=== PATIENT | male | born 1935 | race Caucasian/White ===

== ENCOUNTER → 2018-10-02 | Outpatient (CLI) | payer BC, MEDICARE, OTHER ==
--- NOTE | 2018-10-02 14:56 | CARD ---
MR#: [id number] Date of Study: 10/02/2018 Ordering Physician: YE RENTERIA, Referring Physician: YE RENTERIA Tech: Daisha Aguilar RDCS APPROVED REPORT EXAM: Two-dimensional and M-mode echocardiogram with Doppler and color Doppler. Other Information Quality : GoodHR: 64bpm Rhythm : NSR INDICATION Arrhythmia 2D DIMENSIONS RVDd3.5 (2.9-3.5cm)Left Atrium(2D)4.8 (1.6-4.0cm) IVSd1.4 (0.7-1.1cm)Aortic Root(2D)3.1 (2.0-3.7cm) LVDd4.2 (3.9-5.9cm)LVOT Diameter2.1 (1.8-2.4cm) PWd1.2 (0.7-1.1cm)LVDs3.0 (2.5-4.0cm) FS (%) 28.6 %SV43.0 ml LVEF(%)55.6 (>50%) M-Mode DIMENSIONS Left Atrium(MM)4.61 (2.5-4.0cm)Aortic Root3.58 (2.2-3.7cm) Aortic Valve AoV Peak Jeffrey.258.9cm/sAoV VTI60.8cm AO Peak GR.26.8mmHgLVOT Peak Jeffrey.97.9cm/s AO Mean GR.17mmHgAVA (VMAX)1.28cm2 DANIELLA (VTI)1.30cm2 Mitral Valve MV E Rdniongx36.6cm/sMV DECEL [id number] MV A Eanhpoyg785.4cm/sE/A Ratio0.6 Pulmonary Valve PV Peak Yvlkisjc253.8cm/s Tricuspid Valve TR P. Gfyhbjaw899vj/sRAP AQVVRJJG1qlOr TR Peak Gr.29kiUaTEMQ93bfYw LEFT VENTRICLE The left ventricle is normal size. There is mild concentric left ventricular hypertrophy. The left ve ntricular systolic function is normal and the ejection fraction is within normal range. The Ejection Fraction is 55-60%. There is normal LV segmental wall motion. Transmitral Doppler flow pattern is Gra de I-abnormal relaxation pattern. RIGHT VENTRICLE The right ventricle is normal size. There is normal right ventricular wall thickness. The right ventr icular systolic function is normal. ATRIA The left atrium is mildly dilated. The right atrium size is normal. The interatrial septum is intact with no evidence for an atrial septal defect or patent foramen ovale as noted on 2-D or Doppler imagi ng. AORTIC VALVE The aortic valve is mildly to moderately calcified. Doppler and Color Flow revealed no significant ao rtic regurgitation. There is mild valvular aortic stenosis. Calculated aortic valve maximum pressure gradient of 27 mmHg and mean pressure gradient of 17 mmHg. MITRAL VALVE The mitral valve is thickened but opens well. There is no evidence of mitral valve prolapse. There is no mitral valve stenosis. Doppler and Color-flow revealed mild mitral regurgitation. TRICUSPID VALVE The tricuspid valve is normal in structure and function. Doppler and Color Flow revealed trace tricus pid regurgitation. The PA pressure was estimated at 26 mmHg. There is no tricuspid valve prolapse or vegetation. There is no tricuspid valve stenosis. PULMONIC VALVE The pulmonary valve is normal in structure and function. Doppler and Color Flow revealed trace to mil d pulmonic valvular regurgitation. There is no pulmonic valvular stenosis. GREAT VESSELS The aortic root is normal in size. The ascending aorta is normal in size. The IVC is normal in size a nd collapses >50% with inspiration. PERICARDIAL EFFUSION There is no evidence of significant pericardial effusion. Critical Notification Critical Value: No <Conclusion> The left ventricle is normal size. The left ventricular systolic function is normal and the ejection fraction is within normal range. The Ejection Fraction is 55-60%. There is mild concentric left ventricular hypertrophy. Doppler and Color Flow revealed no significant aortic regurgitation. There is mild valvular aortic stenosis. Calculated aortic valve maximum pressure gradient of 27 mmHg and mean pressure gradient of 17 mmHg. Doppler and Color-flow revealed mild mitral regurgitation. Doppler and Color Flow revealed trace tricuspid regurgitation. The PA pressure was estimated at 26 mmHg. Signed by : Markus Hsieh MD Electronically Approved : 10/02/2018 14:56:40
== END | disposition home or self-care (01) ==
LOC: ECHO 13:50
PROVIDERS: ATTEND Internal Medicine Cardiovascular Disease
DX: I08.8 Other rheumatic multiple valve diseases (principal); R00.1 Bradycardia, unspecified
CPT/HCPCS: 93306

== ENCOUNTER → 2019-12-12 | Outpatient (CLI) | payer BC ==
[~2019-12-12] VITALS: Ht 172.7 cm; Wt 79.4 kg
[~2019-12-12] MED LIST: LISI-338 PO; METF500T16 PO; REGADENOSON 0.4 MG/5 ML DISP.SYRIN. IV ONE
--- NOTE | 2019-12-12 15:50 | CARD ---
MR#: [id number] Date of Study: 12/12/2019 Ordering Physician: YE RENTERIA, Referring Physician: YE RENTERIA Tech: Yolie Ruiz RDCS APPROVED REPORT EXAM: Two-dimensional and M-mode echocardiogram with Doppler and color Doppler. Other Information Quality : Good INDICATION Dyspnea on Exertion 2D DIMENSIONS RVDd3.2 (2.9-3.5cm)Left Atrium(2D)4.1 (1.6-4.0cm) IVSd1.2 (0.7-1.1cm)Aortic Root(2D)2.7 (2.0-3.7cm) LVDd4.5 (3.9-5.9cm)LVOT Diameter2.0 (1.8-2.4cm) PWd1.0 (0.7-1.1cm)LVDs3.5 (2.5-4.0cm) FS (%) 22.3 %SV42.5 ml Aortic Valve AoV Peak Jefrfey.307.5cm/sAoV VTI69.3cm AO Peak GR.37.8mmHgLVOT Peak Jeffrey.120.1cm/s AO Mean GR.19mmHgAVA (VMAX)1.28cm2 DANIELLA (VTI)1.40cm2 Mitral Valve MV E Wzrrxhve96.0cm/sMV DECEL MMNB495ce MV A Arqyadvp92.0cm/sE/A Ratio0.7 Tricuspid Valve TR P. Bqcjqgeo967bs/sRAP EODSROKT8bfUl TR Peak Gr.70caVpRSWA51uoLl Pulmonary Vein S1 Ovtucjar97.6cm/sD2 Plblsncv04.2cm/s LEFT VENTRICLE The left ventricle is normal size. There is mild asymmetric septal hypertrophy. Left ventricle systol ic function is low normal. The Ejection Fraction is 50-55%. There is normal LV segmental wall motion. Transmitral Doppler flow pattern is Grade I-abnormal relaxation pattern. RIGHT VENTRICLE The right ventricle is normal size. The right ventricular systolic function is normal. ATRIA The left atrium is mildly dilated. The right atrium size is normal. The interatrial septum is intact with no evidence for an atrial septal defect or patent foramen ovale as noted on 2-D or Doppler imagi ng. AORTIC VALVE The aortic valve is calcified and displays decreased opening. Doppler and Color Flow revealed no sign ificant aortic regurgitation. Calculated aortic valve area is 1.4 cm2 with maximum pressure gradient of 28 mmHg and mean pressure gradient of 18 mmHg. Doppler and color-flow analysis revealed mild aorti c stenosis. MITRAL VALVE The mitral valve is calcified but opens well. There is no evidence of mitral valve prolapse. There is no mitral valve stenosis. Doppler and Color-flow revealed mild to moderate mitral regurgitation. TRICUSPID VALVE The tricuspid valve is normal in structure and function. Doppler and Color Flow revealed trace tricus pid regurgitation. The PA pressure was estimated at 25 mmHg. There is no tricuspid valve stenosis. PULMONIC VALVE The pulmonary valve is normal in structure and function. Doppler and Color Flow revealed mild pulmoni c valvular regurgitation. There is no pulmonic valvular stenosis. GREAT VESSELS The aortic root is normal in size. The ascending aorta is normal in size. The IVC is normal in size a nd collapses >50% with inspiration. PERICARDIAL EFFUSION There is no evidence of significant pericardial effusion. Critical Notification Critical Value: No <Conclusion> The left ventricle is normal size. Left ventricle systolic function is low normal. The Ejection Fraction is 50-55%. Doppler and Color Flow revealed no significant aortic regurgitation. Calculated aortic valve area is 1.4 cm2 with maximum pressure gradient of 28 mmHg and mean pressure g radient of 18 mmHg. Doppler and color-flow analysis revealed mild aortic stenosis. Doppler and Color-flow revealed mild to moderate mitral regurgitation. Doppler and Color Flow revealed trace tricuspid regurgitation. The PA pressure was estimated at 25 mmHg. Signed by : Markus Hsieh MD Electronically Approved : 12/12/2019 15:50:22
--- NOTE | 2019-12-12 16:47 | RAD ---
MR#: [id number] Date of Study: 12/12/2019 Ordering Physician: YE RENTERIA, Referring Physician: ANNAMARIA GÓMEZ Tech: SHARAN Miles ARRT (R) (N) APPROVED REPORT Test Type: Pharmacological Stress Nurse/Tech: Jeff Lockwood RN Test Indications: LOVE Cardiac History: HTN, See EMR Medications: See EMR Medical History: DM, See EMR Resting ECG: SR Resting Heart Rate: 59 bpm Resting Blood Pressure: 135/86mmHg Pretest Chest Pain: No chest pain Nurse/Tech Notes Lungs CTA, Heart tones regular Consent: The procedure was explained to the patient in lay terms. Informed consent was witnessed. Senthil eout was entered into [employer]. History and Stress Test performed by RT Cher (R) (N) Pharm. Details Pharmacologic stress testing was performed using 0.4mg per 5ml of regadenoson given intravenously ove r 7-10 seconds. Stress Symptoms No chest pain or symptoms. POST EXERCISE Reason for Termination: Infusion complete Max HR: 91 bpm Max Blood Pressure: 148/72mmHg Blood Pressure response to exercise: Normal blood pressure response during stress. Heart Rate response to exercise: WNL Chest Pain: No. Arrhythmia: No. INTERPRETATION Stress EKG Conclusion: The resting EKG showed a sinus rhythm, nonspecific interventricular conduction block and nonspecific ST segment changes. The stress EKG showed no significant changes from baseline. No EKG evidence of stress-induced ischemia. Imaging Protocol IMAGE PROTOCOL: Rest Tc-99m/stress Tc-99m 1 day Rest: Stress: Viability: Radiopharm.Tc99m YwxrqjeftUy90c Sestamibi Jynm97xLg 33mCi Img Date 12/12/2019 12/12/2019 Inj-Img Jray31tux. 60min. Rest Admin Site:IV - Left AntecubitalAdministrator:SHARAN Miles ARRT (R)(N) Stress Admin Site: IV - Left AntecubitalAdministrator: RT Kayley Kwon)(N) STRESS DATA End Diast. Vol.101.0mlAv. Heart Rate63.0bpm End Syst. Vol.30.0mlCO Index BSA0.0L/min Myocardial Gcuf698.0gEject. Mxujhogo92.0% Stress Rates Pk. Fill Rate2.10EDV/secLVtime Pk. Fill 158.34msec Pk. Empty Rate4.05ESV/secLVtime Pk. Wmijv417.16msec 1/3 Pk. Fill1.28EDV/sec Stress Scores Regional WT0.00Summed WT5.00 Regional WM0.00Summed WM2.00 LV Perfusion The rest scans show a small inferior lateral defect. The stress scans show a borderline inferior lateral defect. Nuclear imaging shows a borderline inferior lateral area of possible minimal reversible ischemia. Wall Motion Left ventricular systolic function is normal with no regional wall motion abnormalities and an ejecti on fraction of greater than 70%. LV Perf. Quant 17 Seg. SSS4.00 17 Seg. SRS8.00 17 Seg. SDS0.00 Stress Defect Extent (% LAD)1.30Rest Defect Extent (% LAD)5.60Rev. Defect Extent (% LAD)0.00 Stress Defect Extent (% LCX) 32.50Rest Defect Extent (% LCX)25.00Rev. Defect Extent (% LCX)0.00 Stress Defect Extent (% RCA)2.20Rest Defect Extent (% RCA)5.60Rev. Defect Extent (% RCA)0.00 Stress Defect Extent (% CECI)11.70Rest Defect Extent (% CECI)14.30Rev. Defect Extent (% CECI)0.00 Conclusion 1. No EKG evidence of stress-induced ischemia. 2. Nuclear imaging shows a borderline area in the inferior lateral wall with possible mild reversible ischemia. 3. Normal left ventricular systolic function with an ejection fraction of greater than 70%. 4. Moderate to moderately low risk Lexiscan nuclear stress test. Signed by : Markus Hsieh MD Electronically Approved : 12/12/2019 16:46:53
== END ==
LOC: NM 08:46
PROVIDERS: ATTEND Internal Medicine Cardiovascular Disease
DX: I08.8 Other rheumatic multiple valve diseases (principal); I10 Essential (primary) hypertension
CPT/HCPCS: 78452; 93017; 93306; A9500; J2785

== ENCOUNTER → 2020-12-14 | Outpatient (CLI) | payer BC ==
[~2020-12-14] MED LIST changes: -LISI-338 PO; +LISI5TAB15 PO; -REGADENOSON 0.4 MG/5 ML DISP.SYRIN. IV ONE
--- NOTE | 2020-12-14 18:20 | CARD ---
MR#: [id number] Date of Study: 12/14/2020 Ordering Physician: YE RENTERIA, Referring Physician: Bryce GÓMEZ: Vick Le [facility] APPROVED REPORT EXAM: Two-dimensional and M-mode echocardiogram with Doppler and color Doppler. INDICATION Murmur LEFT VENTRICLE The left ventricle is normal size. There is borderline to mild concentric left ventricular hypertroph y. The left ventricular systolic function is normal and the ejection fraction is within normal range. The ejection fraction of 50 to 55%. There is normal LV segmental wall motion. No left ventricle thro mbus noted on this study. There is no ventricular septal defect visualized. There is no left ventricu lar aneurysm. There is no mass noted in the left ventricle. RIGHT VENTRICLE The right ventricle is normal size. There is normal right ventricular wall thickness. The right ventr icular systolic function is normal. ATRIA The left atrium is mild to moderately dilated. The right atrium size is normal. The interatrial septu m is intact with no evidence for an atrial septal defect or patent foramen ovale as noted on 2-D or D oppler imaging. AORTIC VALVE The aortic valve is calcified and displays decreased opening. Doppler and Color Flow revealed trace a ortic regurgitation. There is mild valvular aortic stenosis. Calculated aortic valve area is 1.1 cm2 with maximum pressure gradient of 33 mmHg and mean pressure gradient of 20 mmHg. There is no aortic v alvular vegetation. MITRAL VALVE The mitral valve is normal in structure and function. There is no evidence of mitral valve prolapse. There is no mitral valve stenosis. Doppler and Color-flow revealed trace to mild mitral regurgitation . TRICUSPID VALVE The tricuspid valve is normal in structure and function. Doppler and Color Flow revealed trace to mil d tricuspid regurgitation. There is no tricuspid valve prolapse or vegetation. There is no tricuspid valve stenosis. PULMONIC VALVE The pulmonary valve is normal in structure and function. Doppler and Color Flow revealed no pulmonic valvular regurgitation. There is no pulmonic valvular stenosis. GREAT VESSELS The aortic root is normal in size. The ascending aorta is normal in size. The IVC is normal in size a nd collapses >50% with inspiration. PERICARDIAL EFFUSION There is no pleural effusion. There is no evidence of significant pericardial effusion. Critical Notification Critical Value: No <Conclusion> The left ventricle is normal size. The left ventricular systolic function is normal and the ejection fraction is within normal range. The ejection fraction of 50 to 55%. There is borderline to mild concentric left ventricular hypertrophy. The aortic valve is calcified and displays decreased opening. Doppler and Color Flow revealed trace aortic regurgitation. There is mild valvular aortic stenosis. Calculated aortic valve area is 1.1 cm2 with maximum pressure gradient of 33 mmHg and mean pressure g radient of 20 mmHg. Doppler and Color-flow revealed trace to mild mitral regurgitation. Doppler and Color Flow revealed trace to mild tricuspid regurgitation. Signed by : Markus Hsieh MD Electronically Approved : 12/14/2020 18:19:31
== END ==
LOC: ECHO 10:31
PROVIDERS: ATTEND Internal Medicine Cardiovascular Disease
DX: I08.3 Combined rheumatic disorders of mitral, aortic and tricuspid valves (principal); I10 Essential (primary) hypertension; R01.1 Cardiac murmur, unspecified
CPT/HCPCS: 93306

== ENCOUNTER → 2021-01-08 | Outpatient (CLI) | payer BC ==
--- NOTE | 2021-01-08 14:53 | CARD ---
MR#: [id number] Date of Study: 01/08/2021 Ordering Physician: YE OCAMPO, Referring Physician: YE OCAMPO, Tech: APPROVED REPORT PROCEDURE: Successful implantation of Biotronik Biomonitor III loop recorder INDICATIONS: Syncope of uncertain etiology PROCEDURE DETAILS: An informed consent was obtained from patient. Patient was brought to the procedure suite and her le ft chest and shoulder were prepped and draped in the usual fashion. 20 mL of 2% lidocaine was infilt rated into the skin and subcutaneous tissues for local anesthesia. An incision was made in the left third intercostal space 1 inch from midsternal line and using the introducer and deploy provided with the kit, a Biotronik biomonitor III, serial #[id number] was placed in the subcutaneous tissue. The in cision was closed in one layer. Hemostasis was secured. Patient tolerated the procedure well. Ther e were no immediate complications. CONCLUSION: Successful implantation of Biotronik Biomonitor III loop recorder for syncope of uncertain etiology Signed by : Ye Ocampo, Electronically Approved : 01/08/2021 14:53:16
== END | disposition home or self-care (01) ==
LOC: LINQ 09:31
PROVIDERS: ATTEND Internal Medicine Cardiovascular Disease
DX: R55 Syncope and collapse (principal); Z79.84 Long term (current) use of oral hypoglycemic drugs; Z79.899 Other long term (current) drug therapy
CPT/HCPCS: 33285; C1764

== ENCOUNTER 2021-02-09 21:41 | Emergency (ER) | payer BC | END 2021-02-09 23:58 | disposition left against medical advice (07) | LOC: ER 21:41 | DX: R13.10 Dysphagia, unspecified (principal); Z53.21 Procedure and treatment not carried out due to patient leaving prior to being seen by health care provider ==

== ENCOUNTER → 2021-02-17 | Outpatient (CLI) | payer BC ==
--- NOTE | 2021-02-17 15:29 | RAD ---
Exam Date: 02/17/2021 3:[address] HEAD/BRAIN WO Indication: Reason: MEMORY LOSS / Spl. Instructions: / History: . TECHNIQUE: Head CT was performed without intravenous contrast. One or more of the following dose re duction techniques were utilized: *Automated exposure control (AEC) *Adjustment of mA and/or kV according to patient size *Use of iterative reconstruction technique *CT scan done according to ALARA, or ALARA/IMAGE GENTLY FINDINGS: The ventricles and sulci are prominent consistent with cerebral volume loss. Patchy ill-defined low attenuation areas in the subcortical and periventricular white matter bilaterally are consistent with microvascular disease. There is no evidence of acute intracranial hemorrhage, extra-axial collecti on, mass effect, midline shift, or acute territorial infarct. No lesion of the skull base or the calv arium is seen. The visualized paranasal sinuses, mastoid air cells and orbits are normal in appearanc e. IMPRESSION: No evidence for acute intracranial abnormality. Volume loss and microvascular disease. Electronically signed by: Néstor Puente MD (02/17/2021 3:26 PM) [facility]
== END ==
LOC: CT 14:44
PROVIDERS: ATTEND Family Medicine
DX: R41.3 Other amnesia (principal)
CPT/HCPCS: 70450